=== PATIENT | female | born 1960 | race Caucasian/White ===

== ENCOUNTER 2021-05-19 14:43 | Outpatient (CLI) | payer OTHER, SELFPAY ==
--- NOTE | 2021-05-19 14:46 | MM_ITS ---
WS: [id number] BILATERAL DIGITAL SCREENING MAMMOGRAPHY WITH CAD CLINICAL INFORMATION: SCREENING HISTORY: Screening mammogram. No current complaints. COMPARISON: TECHNIQUE: Bilateral CC and MLO views. FINDINGS: Scattered fibroglandular densities bilaterally. Stable benign punctate and lucent centered calcificat ions. No suspicious focal mass, asymmetry, calcifications, or architectural distortion. No evidence o f malignancy. MM/[place] [id number] IMPRESSION: BI-RADS: 2-Benign FOLLOW UP: 1 Year Follow-up Recommend return to annual screening mammography.
== END 2021-05-19 14:44 | disposition home or self-care (01) ==
LOC: RADSHAW 14:45
PROVIDERS: PCP Family Medicine; Visit Provider Family Medicine
DX: Z12.31 Encounter for screening mammogram for malignant neoplasm of breast (principal)
CPT/HCPCS: 77067

== ENCOUNTER 2021-05-28 07:00 | Outpatient (CLI) | payer OTHER, SELFPAY ==
[2021-05-28 07:26] VITALS: BMI 33.6
--- NOTE | 2021-05-28 07:26 | ECG_ITS ---
[facility] Test Date: 2021-05-28 Pat Name: Kristin Flores Department: Room: Gender: Female Maintenance Assistant: : 1960 Requested By: Kodak Witt Order Number: [id number] Chalino MD: Kodak Witt M.D. Interpretive Statements NAME OF STUDY: EXERCISE SESTAMIBI STRESS TEST INDICATION: Abnormasl ekg, PROCEDURE: The baseline electrocardiogram showed sinus rhythm with a poor R wave progression. Some nonspecific ST changes. At the baseline, the patient's blood pressure was 121/72 mm Hg with a heart rate of 78. The patient exercised for 5 minutes and 30 seconds on a standard Evgeny protocol. Patient attained a maximum heart rate of 157 beats per minute(98% of the maximum predicted heart rate) with a blood pressure at the peak exercise of 171/101 mm Hg. The EKG at the peak exercise revealed no significant changes. Patient did not have any chest pain or any significant arrhythmis with the exercise Sestamibi was injected 1 minute prior to the peak exercise During the recovery phase, there were no new changes. Blood pressure at the end of the recovery phase was 149/83 mm Hg with a heart rate of 89 per minute. CONCLUSION: 1. No significant EKG changes with the [treadmill exercise 2. No exercise-induced chest pain or cardiac arrhythmia 3. Impaired exercise tolerance, attained a maximum of 7.0 METs 4. Sestamibi/Sestamibi perfusion results pending; see separate report. Electronically Signed On 06-01-2021 22:17:56 [employer] by Kodak Witt M.D. [email or web address]
--- NOTE | 2021-05-28 07:27 | NMCV_ITS ---
NM fox perf SPECT r/s* [id number] Kristin Flores Age: 60 Gender: F : 1960 Exam Date: 05/28/2021 08:13 Ordering Phys: Kodak Witt MD ([email or web address]) Technologist: RIVERA Bear Exam Location: [facility] Indications: SHORTNESS OF BREATH STRESS TEST Please see separate stress test report in [facility] for full findings IMAGE PROTOCOL Rest/Stress 1 Exercise Day Radiopharmaceutical Dose (mCi) Administration Site Administered by Rest: Tc-99m 10.8 IV RIVERA Strauss Sestamibi Stress:Tc-99m 32.6 IV RIVERA Strauss Sestamirubio Rest: 28-May-2021 60 Discovery 630 Stress: 28-May-2021 30 Discovery 630 Radiopharmaceutical was injected at 94 % maximum heart rate. Images obtained in supine and prone position. SPECT RESULTS Technical Quality: Excellent Raw Data Analysis: Normal Image Corrections: No attenuation or motion correction applied Summed Stress Score: 0 Summed Rest Score: 2 Summed Difference Score: 0 PERFUSION FINDINGS Patchy areas of decreased tracer uptake were noted in the lateral and inferolateral regions. No significant reversibility was noted in these areas. FUNCTIONAL RESULTS (calculated via Gated SPECT) Stress Image LV EF (%): 82 Stress EDV (mL):72 TID: 0.8 Stress ESV (mL):13 FUNCTIONAL FINDINGS: Segmental wall motion analysis revealing no gross wall motion normalities. IMPRESSIONS 1. Myocardial perfusion imaging revealing patchy areas of persistent decreased tracer uptake in the lateral and inferolateral regions, most likely represent attenuation artifacts. 2. Normal LV ejection fraction of 82%. 3. LV wall motion analysis revealing no gross wall motion abnormalities. 4. Normal LV volume. No significant coronary ischemia, based on the above findings Dr Kodak Witt MD [facility] (Electronically Signed) Final Date: 28 May 2021 20:39 S
[2021-05-28 09:17] VITALS: BP 149/83; PULSE 82
== END 2021-05-28 07:01 | disposition home or self-care (01) ==
PROVIDERS: PCP Family Medicine; Visit Provider Internal Medicine Cardiovascular Disease
DX: R94.31 Abnormal electrocardiogram [ECG] [EKG] (principal); R06.02 Shortness of breath; R01.1 Cardiac murmur, unspecified
CPT/HCPCS: 78452; 93017; A9500

== ENCOUNTER 2021-09-16 14:29 | Outpatient (CLI) | payer OTHER, SELFPAY ==
--- NOTE | 2021-09-16 15:00 | USCV_ITS ---
Kristin Flores Age: 61 Gender: F : 1960 Exam Date: 09/16/2021 15:00 Ordering Phys: Kodak Witt MD ([email or web address]) Technologist: [email or web address] [place] [facility] [place]: CHEST PAIN BP: 156 / 77 HR: 67 Rhythm: Sinus Technical Quality: Adequate MEASUREMENTS (Male / Female) Normal Values 2D ECHO LV Diastolic Diameter PLAX 3.9 cm 4.2 - 5.9 / 3.9 - 5.3 cm LV Systolic Diameter PLAX 2.2 cm IVS Diastolic Thickness 1.2 cm 0.6 - 1.0 / 0.6 - 0.9 cm IVS Systolic Thickness 1.2 cm LVPW Diastolic Thickness 1.2 cm 0.6 - 1.0 / 0.6 - 0.9 cm LVPW Systolic Thickness 1.3 cm LVOT Diameter 2.1 cm LV Ejection Fraction 2D Teich 73.4 % LV Ejection Fraction MOD 2C 60.3 % LV Ejection Fraction 2C AL 62.8 % LA Diameter 3.5 cm Aorta at Sinotubular Diameter 2.7 cm M-MODE Aortic Annulus Diameter 3.3 cm LA Ao Ratio MM 1.1 MV E Point Septal Separation 0.6 cm DOPPLER AV Peak Velocity 108.0 cm/s LVOT Peak Velocity 92.0 cm/s AV Area Cont Eq vti 2.5 cm squared AV Area Cont Eq pk 3.0 cm squared MV Area PHT 5.0 cm squared Mitral E to A Ratio 0.9 MV E' Velocity 35.5 cm/s Mitral E to MV E' Ratio 9.3 Mitral E to LV E' Lateral Ratio 11.7 Mitral E to LV E' Septal Ratio 7.8 TR Peak Velocity 221.0 cm/s TR Peak Gradient 19.5 mmHg Right Atrial Pressure 3.0 mmHg Pulmonary Artery Systolic Pressu 22.5 mmHg PV Peak Velocity 100.0 cm/s FINDINGS Left Ventricle Normal left ventricular size and systolic function, EF 64 %. Mild left ventricular hypertrophy. No regional wall motion abnormalities. Right Ventricle The right ventricle is normal in size and function. Right Atrium The right atrium is normal in size. Left Atrium The left atrium is normal in size. Mitral Valve No gross abnormalities noted Aortic Valve No gross abnormalities noted Tricuspid Valve No gross abnormalities noted Pulmonic Valve Pulmonic valve not well visualized. Pericardium Normal pericardium without effusion. Aorta Normal ascending aorta dimension. CONCLUSIONS Normal left ventricular size and systolic function, EF 64 %. Mild left ventricular hypertrophy. No regional wall motion abnormalities. No cardiac chamber sizes. No valvular abnormalities noted There is no pericardial effusion. There are no intracardiac masses. No previous study is available for comparison. Dr Kodak Witt MD [facility] (Electronically Signed) Final Date: 16 September 2021 17:38 S
== END 2021-09-16 14:30 | disposition home or self-care (01) ==
PROVIDERS: PCP Family Medicine; Visit Provider Internal Medicine Cardiovascular Disease
DX: R06.00 Dyspnea, unspecified (principal); R01.1 Cardiac murmur, unspecified; R07.9 Chest pain, unspecified
CPT/HCPCS: 93306

== ENCOUNTER 2022-12-02 12:38 | Outpatient (CLI) | payer OTHER, SELFPAY ==
--- NOTE | 2022-12-02 | MM_ITS ---
WS: [id number] Bilateral screening 3D tomosynthesis digital mammogram, 12/02/2022 Clinical Data: SCREENING Comparison: 05/19/2021, 02/08/2019, 08/10/2017, 11/17/2011. Findings: The breast parenchymal pattern shows fibroglandular tissue. No spiculated masses or clustered calcifi cations are seen. There are no secondary signs of carcinoma. MM/[place] [id number] Impression: 1. Negative bilateral mammogram unchanged. 2. Recommend annual screening mammograms. BIRADS: 1-Negative FOLLOW UP: 1 Year Follow-up The CAD security checker was used.
== END 2022-12-02 12:39 | disposition home or self-care (01) ==
PROVIDERS: PCP Family Medicine; Visit Provider Family Medicine
DX: Z12.31 Encounter for screening mammogram for malignant neoplasm of breast (principal)
CPT/HCPCS: 77063; 77067

== ENCOUNTER 2025-02-14 08:10 | Outpatient (CLI) | payer BC, SELFPAY ==
--- NOTE | 2025-02-14 08:17 | MM_ITS ---
WS: [id number] BILATERAL SCREENING DIGITAL TOMOSYNTHESIS MAMMOGRAM WITH CAD HISTORY: SCREENING COMPARISON: 12/02/2022, 05/19/2021 Bilateral CC and MLO views with tomosynthesis and synthetic mammography submitted. Computer aided detection analyzed. Breast composition: There are scattered areas of fibroglandular density. No suspicious masses, microcalcifications or architectural distortion. Bilateral breast calcifications are benign. MM/MM scr BI tomosynthesis [id number] IMPRESSION: BI-RADS: 2 - Benign. FOLLOW UP: 1 Year Follow-up
== END 2025-02-14 08:11 | disposition home or self-care (01) ==
LOC: RAD 08:11
PROVIDERS: PCP Family Medicine; Visit Provider Family Medicine
DX: Z12.31 Encounter for screening mammogram for malignant neoplasm of breast (principal); R92.323 Mammographic fibroglandular density, bilateral breasts; R92.1 Mammographic calcification found on diagnostic imaging of breast
CPT/HCPCS: 77063; 77067